=== PATIENT | male | born 1980 | race Caucasian/White ===

== ENCOUNTER 2016-09-30 01:32 | Emergency (ER) | payer SELFPAY ==
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
[2016-09-30 02:20] VITALS: BP 138/65
== END 2016-09-30 02:13 ==
LOC: MW.ED 01:32
DX: Z02.89 Encounter for other administrative examinations (principal); S00.531A Contusion of lip, initial encounter; S00.33XA Contusion of nose, initial encounter; W01.10XA Fall on same level from slipping, tripping and stumbling with subsequent striking against unspecified object, initial encounter
CPT/HCPCS: 82962; 99282; 99283